=== PATIENT | male | born 1965 | race Caucasian/White ===

== ENCOUNTER 2023-07-11 12:43 | Emergency (ER) | payer OTHER, SELFPAY ==
[2023-07-11 12:51] VITALS: BP 130/75; PULSE 58; RESP 16; TEMP 36.6; O2SAT 100
--- NOTE | 2023-07-11 13:15 | DI.CT_ITS ---
Exam(s) CT RENAL COLIC WO EXAM: CT RENAL COLIC WO CLINICAL HISTORY: right flank pain. TECHNIQUE: Imaging Protocol: Axial computed tomography images with coronal and sagittal reformatted images were created and reviewed. CONTRAST MATERIAL: Noncontrast COMPARISON: No exams were available for comparison FINDINGS: ABDOMEN: Lung Bases: Normal where visualized. Liver: Normal attenuation. No measurable mass. Gallbladder and biliary tract: No radiodense calculus or dilation. Pancreas: Normal density, no calcifications or inflammatory process. Spleen: Normal. Kidneys: Normal size, contour and axis. Tiny bilateral renal calculi. 4 millimeter stone right urete rovesical junction causing moderate right hydronephrosis. No masses seen. Adrenal glands: No masses seen. Abdominal Aorta: Abdominal portion non-dilated. Soft tissues: Unremarkable. PELVIS: Bladder: Symmetric distention, no gross wall thickening. 4 millimeter stone right ureterovesical junc tion..No visible mass. Bowel: No obstruction or bowel wall thickening. Reproductive: Unremarkable. Peritoneal cavity: No ascites, collection or mesenteric inflammatory response. Bones: Degenerative disc changes greatest at L4-5 and L5-S1. Large bone island L4. Degenerative tung nges of both hips. IMPRESSION: 4 millimeter calculus at the right ureterovesical junction causing moderate hydronephrosis. Addition al small nonobstructing calculi noted bilaterally. RADIATION DOSE DELIVERED: 1,272.63mGy.cm Total DLP DATA REPOSITORY: All CT scans at this facility are submitted to the National Radiology Data Registry (NRDR) Dose Index Registry (DIR) with the [employer] ([employer]). RADIATION OPTIMIZATION: All CT scans at this facility use at least one of these dose optimization te chniques: automated exposure control; mA and/or kV adjustment per patient size (includes targeted exa ms where dose is matched to clinical indication); or iterative reconstruction.
[2023-07-11] MEDS: Ketorolac 30 MG/ML VIAL 15 MG IVP (13:55)
[2023-07-11] MEDS: Normal Saline 1,000 ML 1000 ML IV (13:55)
[2023-07-11] MEDS: HYDROmorphone 2 MG/ML SYR 1 MG IVP (13:55)
[2023-07-11] MEDS: Ondansetron 4 MG/2 ML VIAL IVP (13:56)
[2023-07-11 14:01] LABS: Abs Immature Grans 0.03 10^3/uL (0.0-0.06); Absolute Basophil Count 0.06 10^3/uL (0.0-0.2); Absolute Eosinophil Count 0.11 10^3/uL (0.0-0.7); Absolute Lymphocyte Count 1.71 10^3/uL (1.2-3.4); Absolute Monocyte Count 0.69 10^3/uL (0.1-0.8); Basophils % 0.6; Eosinophils % 1.1; HCT 44.9 % (40.0-50.0); HGB 15.1 g/dL (13.5-17.5); Immature Grans % 0.3; Lymphocytes % 17.3; MCHC 33.6 % (32.0-36.0); MCV 86 fL (80-95); MPV 9.8 fL (8.0-11.0); Neutrophils % 73.7; Platelet Count 303 10^3/uL (130-400); RBC 5.21 10^6/uL (4.36-5.78); RDW 13.6 % (11.8-14.1); RDW-SD 41.7 fL
[2023-07-11 14:27] LABS: ALT 46 U/L (16-63); AST 31 U/L (15-37); Albumin 4.2 g/dL (3.4-5.0); Alkaline Phosphatase 70 U/L (46-116); Anion Gap 11.2 mmol/L (3-11); BUN 23 mg/dL (7-18); Bilirubin, Total 1.1 mg/dL (0.2-1.0); CO2 25.8 mmol/L (21.0-32.0); CREATININE 1.4 mg/dL (0.70-1.30); Calcium 9.5 mg/dL (8.5-10.1); Chloride 103 mmol/L (98-107); Estimated GFR 58.26 (mL/min/1.73m2); Glucose 114 mg/dL (74-106); Potassium 3.7 mmol/L (3.5-5.1); Sodium 140 mmol/L (136-145); Total Protein 7.7 g/dL (6.4-8.2)
[2023-07-11 15:03] LABS: Bilirubin Negative (Negative); Blood Moderate (Negative); Clarity Clear (Clear); Glucose Negative (Negative); Ketones Negative (Negative); Leukocyte Esterase Small (Negative); Nitrite Negative (Negative); Specific Gravity 1.025 (1.005-1.025); Urobilinogen 0.2 mg/dL (Up to 0.2)
[2023-07-11 15:20] LABS: Bacteria Few HPF (Negative); C & S Indicated? Yes; Casts Negative LPF (Negative); Crystals Negative HPF (Negative); Epithelial Cells Few HPF (Negative); Mucus Negative (Negative)
--- NOTE | 2023-07-11 15:36 | W.ED.GENAD ---
Discharge Plan Disposition Patient Disposition: Home Discharge Details Clinical Impression: Hydronephrosis with ureteral calculus Primary Care Provider: Unknown,Unknown ED Provider: Perfecto Clinton Home Meds and New Rx's Prescriptions: New ketorolac 10 mg tablet 10 mg PO TID 5 Days Qty: 15 0RF ondansetron 4 mg tablet,disintegrating 4 mg PO Q8H PRN (Reason: nausea and vomiting) Qty: 10 0RF tamsulosin [Flomax] 0.4 mg capsule 0.4 mg PO QHS Qty: 14 0RF Discharge Instructions Instructions: Kidney Stones (ED), How to Strain Your Urine (ED) Additional Instructions: You have a 4 mm kidney stone. Please take medication as prescribed and continue to stay well-hydrated. If you have any new or significant worsening symptoms feel free to return the emergency department for reassessment otherwise follow-up with urology as discussed. Referrals: [facility] [Provider Group] - 2 weeks (Please call the office for arrangement of follow-up appointment) Discharge Data Discharge Date/Time-TO BE ENTERED AT DEPARTURE: 07/11/23 15:57 Medical Decision Making Patient presenting the emergency department for chief complaint of right flank pain. Patient states he was sitting in his office chair when he had sudden onset of right flank pain. Patient denies any injury or trauma, does state associated chills and sweats with painful episodes, some nausea and vomiting. No significant past medical history. Physical exam shows right CVA tenderness and an otherwise very uncomfortable appearing male patient. We will plan on checking patient's labs and performing CT imaging with high suspicion of kidney stone. Pending results will give IV fluids, Zofran, ketorolac, hydromorphone. Reviewed patient's labs and CBC is overall unremarkable, CMP does show slight increase of BUN and creatinine with a GFR of 58, glucose and total total bilirubin are also slightly elevated. Labs are otherwise nondiagnostic, urinalysis did show moderate amount of blood with small amount of leukocyte Estrace and red blood cells. Culture was indicated but I do not think that patient is having acute infection. CT imaging showed a 4 mm stone in the right UVJ causing some hydronephrosis. Patient started on Flomax and otherwise given medication for symptom management at home otherwise I do feel that patient can follow-up with urology on outpatient basis or return for new or worsening symptoms. After discussion of diagnosis and plan of care patient has no further needs, questions, or concerns and states clear understanding to return to the emergency department for any worsening symptoms. This documentation was generated using [facility] dictation system, please disregard any oddities of phrase or misspellings. Imaging Data Radiologic Study: Imaging: CT Scan Radiologist's impression: Exam(s) CT RENAL COLIC WO EXAM: CT RENAL COLIC WO CLINICAL HISTORY: right flank pain. TECHNIQUE: Imaging Protocol: Axial computed tomography images with coronal and sagittal reformatted images were created and reviewed. CONTRAST MATERIAL: Noncontrast COMPARISON: No exams were available for comparison FINDINGS: ABDOMEN: Lung Bases: Normal where visualized. Liver: Normal attenuation. No measurable mass. Gallbladder and biliary tract: No radiodense calculus or dilation. Pancreas: Normal density, no calcifications or inflammatory process. Spleen: Normal. Kidneys: Normal size, contour and axis. Tiny bilateral renal calculi. 4 millimeter stone right ureterovesical junction causing moderate right hydronephrosis. No masses seen. Adrenal glands: No masses seen. Abdominal Aorta: Abdominal portion non-dilated. Soft tissues: Unremarkable. PELVIS: Bladder: Symmetric distention, no gross wall thickening. 4 millimeter stone right ureterovesical junction..No visible mass. Bowel: No obstruction or bowel wall thickening. Reproductive: Unremarkable. Peritoneal cavity: No ascites, collection or mesenteric inflammatory response. Bones: Degenerative disc changes greatest at L4-5 and L5-S1. Large bone island L4. Degenerative changes of both hips. IMPRESSION: 4 millimeter calculus at the right ureterovesical junction causing moderate hydronephrosis. Additional small nonobstructing calculi noted bilaterally. HPI General Mode of arrival: ambulatory. Date/Time Provider Initiated Documentation: 07/11/23 13:17. Limitations to Documentation: no limitations. Information obtained by: patient and RN notes reviewed. History of Present Illness 58 year old M presents to the emergency department with the chief complaint of Right flank pain, described as severe, Quality is described as sharp, and is localized to the back. Patient abdomen. Patient started experiencing this hour(s) (1) and it has been constant. No relieving factors improve symptom(s), No exacerbating factors reported . Patient did receive the following treatments prior to arrival, none Related Data Home Medications Medication Instructions Recorded Confirmed ketorolac 10 mg tablet 10 mg PO TID 5 days #15 tabs 07/11/23 ondansetron 4 mg disintegrating 4 mg PO Q8H PRN nausea and 07/11/23 tablet vomiting #10 tabs tamsulosin 0.4 mg capsule (Flomax) 0.4 mg PO QHS #14 caps 07/11/23 Previous Rx's Medication Instructions Recorded ketorolac 10 mg tablet 10 mg PO TID 5 days #15 tabs 07/11/23 ondansetron 4 mg disintegrating 4 mg PO Q8H PRN nausea and 07/11/23 tablet vomiting #10 tabs tamsulosin 0.4 mg capsule (Flomax) 0.4 mg PO QHS #14 caps 07/11/23 Allergies Allergy/AdvReac Type Severity Reaction Status Date / Time ampicillin Allergy Unverified 07/11/23 12:58 clindamycin Allergy Unverified 07/11/23 12:58 Penicillins Allergy Unverified 07/11/23 12:58 General Stated Complaint: FlankPain PARDEEP: 3 Review of Systems Constitutional Constitutional: Denies chills and Denies fever(s) Cardiovascular Cardiovascular: Denies chest pain and Denies dyspnea Respiratory Respiratory: Denies cough and Denies dyspnea Gastrointestinal Gastrointestinal: Reports as per HPI, Denies melena, Denies change in bowel habits, Denies constipation, Denies diarrhea, Reports nausea and Reports vomiting Genitourinary Genitourinary: Denies hematuria, Denies difficulty urinating, Reports flank pain, Denies urinary hesitancy, Denies urinary incontinence and Denies urinary urgency Integumentary/Breasts Skin/Breast: Denies rash PFSH All Active Problems Hydronephrosis with ureteral calculus (Acute) Social History Smoking/Tobacco Use Status: Never Smoking risk assessment performed?: Yes Alcohol Intake: current Alcohol Intake frequency: holidays/special occasions only Drug use: Daily Substance use type: marijuana Exam Const General: cooperative Orientation: alert, awake and oriented x3 Resp Effort & Inspection: normal respiratory effort and able to speak in complete sentences Auscultation: clear to auscultation bilaterally Cardio Rate: regular rate Rhythm: regular rhythm Heart Sounds: S1 normal and S2 normal GI Palpation: soft, not firm, no guarding, no masses, no pulsatile masses, not rigid and nontender Auscultation: normal bowel sounds General: CVA tenderness on the right Back/Spine/Pelvis Back: no CVA tenderness Neuro General: patient alert, patient awake, patient oriented x3, gait normal and moves all extremities Course Vital Signs Vital signs: Vital Signs Temperature 36.6 C 07/11/23 12:51 Pulse 58 L 07/11/23 12:51 Respiratory Rate 16 07/11/23 12:51 Blood Pressure 130/75 07/11/23 12:51 Pulse Oximetry 100 07/11/23 12:51 Temperature 36.6 C 07/11/23 12:51 Temperature Source Skin 07/11/23 12:51 Pulse 58 L 07/11/23 12:51 Respiratory Rate 16 07/11/23 12:51 Respiratory Effort Normal, Non-Labored 07/11/23 14:07 Blood Pressure 130/75 07/11/23 12:51 Blood Pressure Position Sitting 07/11/23 12:51 Pulse Oximetry 100 07/11/23 12:51 Oxygen Delivery Method Room Air 07/11/23 12:51 Oxygen Flow Rate 0 07/11/23 12:51 Pain Level 7 07/11/23 12:51 Lab/Test Results Lab/Test Results: 07/11/23 14:20 Urine - Reflex from Ua Urine Culture - Pending Laboratory Tests Range/Units 07/11/23 07/11/23 07/11/23 13:50 13:50 14:20 WBC (4.4-10.8) 10^3/uL 9.90 RBC (4.36-5.78) 10^6/uL 5.21 Hgb (13.5-17.5) g/dL 15.1 Hct (40.0-50.0) % 44.9 MCV (80-95) fL 86 MCH (27.0-33.0) pg 29.0 MCHC (32.0-36.0) % 33.6 RDW (11.8-14.1) % 13.6 Plt Count (130-400) 10^3/uL 303 MPV (8.0-11.0) fL 9.8 Immature Gran % 0.3 Neutrophils % 73.7 Lymphocytes % 17.3 Monocytes % 7.0 Eosinophils % 1.1 Basophils % 0.6 Nucleated RBC % (0.0-0.3) % 0.0 Absolute Neutrophils (1.2-6.7) 10^3/uL 7.30 H Absolute Lymphocytes (1.2-3.4) 10^3/uL 1.71 Absolute Monocytes (0.1-0.8) 10^3/uL 0.69 Absolute Eosinophils (0.0-0.7) 10^3/uL 0.11 Absolute Basophils (0.0-0.2) 10^3/uL 0.06 Sodium (136-145) mmol/L 140 Potassium (3.5-5.1) mmol/L 3.7 Chloride (98-107) mmol/L 103 Carbon Dioxide (21.0-32.0) mmol/L 25.8 Anion Gap (3-11) mmol/L 11.2 H BUN (7-18) mg/dL 23 H Creatinine (0.70-1.30) mg/dL 1.4 H Est GFR (CKD-EPI 2020) (mL/min/1.73m2) 58.26 Glucose (74-106) mg/dL 114 H Calcium (8.5-10.1) mg/dL 9.5 Total Bilirubin (0.2-1.0) mg/dL 1.1 H AST (15-37) U/L 31 ALT (16-63) U/L 46 Alkaline Phosphatase (46-116) U/L 70 Total Protein (6.4-8.2) g/dL 7.7 Albumin (3.4-5.0) g/dL 4.2 Urine Color (Yellow) Yellow Urine Clarity (Clear) Clear Urine pH (5-8) 6.0 Ur Specific [place] (1.005-1.025) 1.025 Urine Protein (Negative) mg/dL Negative Urine Ketones (Negative) mg/dL Negative Urine Blood (Negative) Moderate H Urine Nitrite (Negative) Negative Urine Bilirubin (Negative) Negative Urine Urobilinogen (Up to 0.2) mg/dL 0.2 Ur Leukocyte Esterase (Negative) Small H Urine RBC (0-2) HPF 10-20 H Urine WBC (0-5) HPF 5-10 Ur Epithelial Cells (Negative) HPF Few Urine Crystals (Negative) HPF Negative Urine Bacteria (Negative) HPF Few Urine Casts (Negative) LPF Negative Urine Mucus (Negative) Negative Ur Culture Indicated? Yes Urine Glucose (Negative) mg/dL Negative
--- NOTE | 2023-07-11 17:36 | NUR.NOTE ---
Referral faxed to [facility] U[facility] for kidney stone 4mm; appt at their discretion. Nursing Note:
== END 2023-07-11 15:57 | disposition home or self-care (01) ==
PROVIDERS: Emergency Provider Nurse Practitioner Family
DX: N13.2 Hydronephrosis with renal and ureteral calculous obstruction (principal)
CPT/HCPCS: 80053; 96361; 96374; 96375; 99284; 74176; 81003; 81015; 85025; 87086; J1170; J1885; J2405

== ENCOUNTER 2023-07-19 08:13 | Outpatient (REF) | payer OTHER, SELFPAY ==
[2023-07-26 12:21] LABS: Source: Passed Stone
== END 2023-07-19 08:14 | disposition home or self-care (01) ==
LOC: LBN 08:13
PROVIDERS: Visit Provider Urology
DX: N13.2 Hydronephrosis with renal and ureteral calculous obstruction (principal)
CPT/HCPCS: 82365

== ENCOUNTER 2024-06-02 14:20 | Outpatient (REF) | payer OTHER, SELFPAY ==
[2024-06-26 15:05] LABS: Source: Passed Stone
== END 2024-06-02 14:21 | disposition home or self-care (01) ==
LOC: LBN 14:20
PROVIDERS: Visit Provider Urology
DX: N20.0 Calculus of kidney (principal)
CPT/HCPCS: 82365